=== PATIENT | female | born 1955 | race Hispanic/Latino ===

== ENCOUNTER → 2018-04-02 | Outpatient (CLI) | payer OTHER ==
[~2018-04-02] MED LIST: AMIT25TA9 PO; ENAL2.5T PO; FLUTICASONE NASAL; GLYB2.5 PO; GLYB5TAB8 PO; LEVO88TA7 PO; LINA1TAB PO; OMEP20CA10 PO; PRAV20TA4 PO
== END | disposition home or self-care (01) ==
LOC: RAH 08:50
PROVIDERS: ATTEND Family Medicine
DX: Z12.31 Encounter for screening mammogram for malignant neoplasm of breast (principal)
CPT/HCPCS: 77067

== ENCOUNTER → 2019-04-15 | Outpatient (CLI) | payer OTHER ==
[~2019-04-15] MED LIST changes: +OMEP-50 PO; -OMEP20CA10 PO
== END | disposition home or self-care (01) ==
LOC: RAH 11:27
PROVIDERS: ATTEND Family Medicine
DX: Z12.31 Encounter for screening mammogram for malignant neoplasm of breast (principal)
CPT/HCPCS: 77067

== ENCOUNTER 2019-10-12 20:28 | Emergency (ER) | payer OTHER ==
[~2019-10-12 20:28] MED LIST changes: -ENAL2.5T PO; +ENAL2.5T16 PO; -OMEP-50 PO; +OMEP20CA12 PO
[2019-10-12] MEDS ORDERED: ACETAMINOPHEN 325 MG TAB ONE (21:55)
== END 2019-10-12 21:59 | disposition home or self-care (01) ==
LOC: EDH 20:28
DX: S01.01XA Laceration without foreign body of scalp, initial encounter (principal); S50.12XA Contusion of left forearm, initial encounter; E11.9 Type 2 diabetes mellitus without complications; E78.00 Pure hypercholesterolemia, unspecified; I10 Essential (primary) hypertension; E03.9 Hypothyroidism, unspecified; Z98.890 Other specified postprocedural states; Z87.891 Personal history of nicotine dependence; W18.39XA Other fall on same level, initial encounter; Y93.01 Activity, walking, marching and hiking; Y92.89 Other specified places as the place of occurrence of the external cause; Y99.8 Other external cause status
CPT/HCPCS: 12002

== ENCOUNTER → 2022-10-08 | Outpatient (CLI) | payer OTHER ==
[~2022-10-08] MED LIST changes: -GLYB2.5 PO; +GLYB2.5T6 PO
== END | disposition home or self-care (01) ==
LOC: RAH 10:00
PROVIDERS: ATTEND Internal Medicine Gastroenterology
DX: R13.10 Dysphagia, unspecified (principal); K21.9 Gastro-esophageal reflux disease without esophagitis
CPT/HCPCS: 74230; 92611

== ENCOUNTER → 2022-10-19 | Outpatient (CLI) | payer OTHER | END | disposition home or self-care (01) | LOC: RAH 08:58 | PROVIDERS: ATTEND Internal Medicine Gastroenterology | DX: K44.9 Diaphragmatic hernia without obstruction or gangrene (principal); K21.00 Gastro-esophageal reflux disease with esophagitis, without bleeding; R13.10 Dysphagia, unspecified | CPT/HCPCS: 74240 ==

== ENCOUNTER → 2023-11-01 | Outpatient (CLI) | payer OTHER ==
[~2023-11-01] MED LIST changes: -ENAL2.5T16 PO; +ENAL2.5T71 PO
== END | disposition home or self-care (01) ==
LOC: RAH 09:24
PROVIDERS: ATTEND Internal Medicine
DX: Z12.31 Encounter for screening mammogram for malignant neoplasm of breast (principal)
CPT/HCPCS: 77067

== ENCOUNTER → 2024-04-17 | Outpatient (CLI) | payer OTHER ==
[~2024-04-17] MED LIST changes: +IOHEXOL 350 MG/ML 100ML INFUS..BTL IV ONE
== END | disposition home or self-care (01) ==
LOC: RAH 04-16 08:48
PROVIDERS: ATTEND Internal Medicine
DX: R07.9 Chest pain, unspecified (principal)
CPT/HCPCS: 75574; Q9967

== ENCOUNTER → 2024-12-31 | Outpatient (CLI) | payer OTHER ==
[~2024-12-31] MED LIST changes: +AMIT25TA21 PO; -AMIT25TA9 PO; -IOHEXOL 350 MG/ML 100ML INFUS..BTL IV ONE; -PRAV20TA4 PO; +PRAV20TA59 PO
--- NOTE | 2024-12-31 16:41 | HMCIMG ---
DEXA BONE DENSITY SURVEY HISTORY: No additional history given. COMPARISON: None FINDINGS: Bone densitometry study was performed. Bone mineral density of the lumbar spine is 1.659 gram per centimeter square which corresponds to a T score of 5.0 and a Z score of 7.6. Bone mineral density of the left hip is 1.187 grams per centimeter square which corresponds to a T score of 1.7 and a Z score of 3.1. IMPRESSION: 1. Normal bone mineral density of the lumbar spine and left hip.
== END | disposition home or self-care (01) ==
LOC: RAH 14:18
PROVIDERS: ATTEND Internal Medicine
DX: Z78.0 Asymptomatic menopausal state (principal)
CPT/HCPCS: 77080

== ENCOUNTER → 2025-06-04 | Outpatient (CLI) | payer OTHER ==
--- NOTE | 2025-06-04 20:00 | HMCIMG ---
STUDY: X-RAY OF THE RIGHT SHOULDER, 2 VIEWS HISTORY: Pain in the right shoulder. TECHNIQUE: AP views of the right shoulder in internal and external rotation are submitted for interpretation. COMPARISON: None provided. FINDINGS: Bones and joints: Mild osteoarthritic changes of the acromioclavicular and glenohumeral joints with early joint space narrowing and small marginal osteophytes. Humeral head is normally aligned with the glenoid. No acute fracture, dislocation, or aggressive osseous lesion is identified. Soft tissues: Periarticular soft tissues are unremarkable. No radiopaque foreign body or abnormal soft tissue gas. IMPRESSION: * Mild degenerative (osteoarthritic) changes of the right acromioclavicular and glenohumeral joints. * No acute fracture or dislocation of the right shoulder. /Simpson
== END | disposition home or self-care (01) ==
LOC: RAH 07:57
PROVIDERS: ATTEND Internal Medicine
DX: M19.011 Primary osteoarthritis, right shoulder (principal); M25.711 Osteophyte, right shoulder; M25.511 Pain in right shoulder
CPT/HCPCS: 73030